=== PATIENT | female | born 1940 | race Caucasian/White ===

== ENCOUNTER 2017-06-23 10:06 | Outpatient (CLI) | payer MEDICARE ==
[2017-06-23] MEDS ORDERED: Iopamidol 370 76% 100 ML VIAL ONE (14:28)
== END 2017-06-23 10:07 | disposition home or self-care (01) ==
LOC: BICCT 10:06
PROVIDERS: ATTEND Internal Medicine Gastroenterology
DX: K52.839 Microscopic colitis, unspecified (principal); R10.31 Right lower quadrant pain; K57.30 Diverticulosis of large intestine without perforation or abscess without bleeding; K86.89 Other specified diseases of pancreas; M41.86 Other forms of scoliosis, lumbar region; M47.896 Other spondylosis, lumbar region
CPT/HCPCS: 74177

== ENCOUNTER 2017-07-02 10:05 | Outpatient (CLI) | payer MEDICARE ==
[2017-07-02] MEDS ORDERED: Gadobenate Dimeglumine 529 MG/1 ML (20ML VIAL) ONE (17:13)
== END 2017-07-02 10:06 | disposition home or self-care (01) ==
LOC: BICMRI 10:05
PROVIDERS: ATTEND Family Medicine
DX: R93.8 Abnormal findings on diagnostic imaging of other specified body structures (principal); K80.20 Calculus of gallbladder without cholecystitis without obstruction; K86.2 Cyst of pancreas
CPT/HCPCS: 36415; 74183; 80053; 83735; 84100; 85025; A9579

== ENCOUNTER 2018-03-26 12:52 | Outpatient (CLI) | payer MEDICARE ==
--- NOTE | 2018-03-26 15:23 | NM ---
HEPATOBILIARY SCAN: Date: 03/26/18 HISTORY: Gallstones. Right upper quadrant pain. RADIOPHARMACEUTICAL: 5.1 mCi technetium-99m mebrofenin injected intravenously. FINDINGS: There is good tracer extraction by the liver with prompt excretion into the biliary tract and small b owel loops, and normal filling of the gallbladder. IMPRESSION: No evidence of acute cholecystitis or high grade biliary tract obstruction. POS: [facility]
== END 2018-03-26 12:53 | disposition home or self-care (01) ==
LOC: NM 12:52
PROVIDERS: ATTEND Internal Medicine Gastroenterology
DX: M13.851 Other specified arthritis, right hip (principal); R10.31 Right lower quadrant pain; K80.21 Calculus of gallbladder without cholecystitis with obstruction
CPT/HCPCS: 78226; A9537

== ENCOUNTER 2018-06-04 12:38 | Outpatient (CLI) | payer MEDICARE ==
--- NOTE | 2018-06-04 15:54 | MRI ---
THORACIC SPINE MRI NONCONTRAST: 06/04/18 INDICATION: Scoliosis of the thoracolumbar region. Back pain. FINDINGS: There is no acute marrow edema. No compression fracture or subluxation. The thoracic spinal cord demo nstrates appropriate caliber contour and signal intensity. No significant central canal or neural for aminal stenosis at the thoracic spine. There is a trace degree of spondylolisthesis at T11-12 with as sociated mild disc osteophyte effacing ventral thecal sac. Minimal posterior disc bulge is seen at th e T9-10, T8-9 and T7-8 levels. At the T12-L1 level, there is a broad based disc osteophyte, asymmetri c to the right with moderate narrowing of the central canal. Partially imaged T2 hyperintensity of the right retroperitoneum may relate to extrarenal pelvis or ex ophytic cyst from the right kidney, difficult to reliably visualize on the bases of this exam. IMPRESSION: No acute abnormality of the thoracic spine. There is moderate central canal stenosis at the T12-L1 level due to disc osteophyte formation. POS: [facility]
--- NOTE | 2018-06-04 15:56 | MRI ---
MRI CERVICAL SPINE NONCONTRAST: Date: 06/04/18 HISTORY: 78-year-old female with cervical myelopathy, G95.9. COMPARISON: No prior MRI of cervical spine. FINDINGS: Vertebral body heights are maintained. Questionable mild bone marrow edema versus artifact at some le vels in the cervical spine and upper thoracic spine on the STIR sagittal sequence, favored to be alisha fact. Cervical spinal cord is normal in size and signal. Encephalomalacia and gliosis involving the i nferior aspect of right cerebellar hemisphere consistent with old infarctions of the right PICA toya tory. C1-2: No high grade central stenosis. C2-3: Disc space maintained. Central and right paracentral broad based disc-osteophytic bar complex, slightly indenting the central and right paracentral ventral aspect of the thecal sac, causing mild central spinal canal stenosis. Severe right facet DJD. Normal left facet joint. Mild bilateral neural foraminal stenosis, right greater than left. C3-4: Disc space maintained. Broad based disc-osteophytic bar complex encroaches upon the anterior a spect of the spinal canal, causing moderate central spinal canal stenosis. Severe right facet DJD. Mo derate to severe left facet DJD. Bilateral moderate to severe neural foraminal stenosis. C4-5: Ankylosis or right facet joint. Probable ankylosis of the contralateral left facet joint. Que stionable partial ankylosis across posterior aspect of the disc space. Moderate to severe disc space narrowing. T2 hyperintense signal within the disc space, nonspecific. No end plate edema. Broad disc- osteophytic bar complex encroaches upon the anterior aspect of the spinal canal causing moderate cent ral spinal canal stenosis. Moderate bilateral neural foraminal stenosis, right greater than left. Min imal anterolisthesis of C4 on C5. C5-6: Disc space maintained. Severe right-sided degenerative facet disease. Moderate to severe left- sided degenerative facet disease. These result in a Grade I anterolisthesis of C5 on C6. Diffuse mild disc bulge. Somewhat severe thickening of the ligamentum flavum. All of these factors result in arden re central spinal canal stenosis, with indentation of the ventral, and especially dorsal, aspects of the spinal cord, and complete effacement of CSF signal. Bony neural foraminal stenosis is moderate on the right and mild to moderate on the left, but there is effacement of fat signal in the right neura l foramen. Left-sided facet joint effusion. C6-7: Moderate disc space narrowing. Diffuse disc bulge-osteophytic bar complex encroaches upon the ventral aspect of the spinal canal, indenting the ventral aspect of the spinal cord. Moderate central spinal canal stenosis. Mild right neural foraminal stenosis. Moderate left neural foraminal stenosis . Moderate right degenerative facet changes. Mild to moderate left degenerative facet changes. C7-T1: Disc space maintained. Mild ligamentum flavum thickening. Mild disc bulge-osteophytic bar com plex. No significant central stenosis. No high grade neural foraminal stenosis. Bilateral moderate de generative facet changes. IMPRESSION: 1. Cervical spondylosis, with multilevel mild and moderate degenerative disc disease, and multilevel moderate and severe facet osteoarthrosis. 2. Chronic cord compression and severe central spinal canal stenosis at C5-6 due to a combination of Grade I spondylolisthesis, moderately severe ligamentum flavum thickening, and diffuse disc bulge. 3. Multilevel high grade bilateral neural foraminal stenosis. 4. 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 5. Ankylosis of facet joint(s) at C4-5. POS: [facility]
--- NOTE | 2018-06-04 16:16 | MRI ---
MRI LUMBAR SPINE WITHOUT CONTRAST: HISTORY: Lumbar radiculopathy. Low back pain x2 years. Right-sided pelvic pain x2-3 years. COMPARISON: None. TECHNIQUE: An MRI of the lumbar spine is performed without intravenous Gadolinium administration. Multisequenti al, multiplanar imaging is performed. FINDINGS: Coronal T2-weighted images demonstrate a mild leftward curvature of the distal thoracic spine. There is a significant rightward curvature of the lumbar spine with apex at the L2-L3 level. The visualized solid organs demonstrate appropriate signal intensity. There is a right extrarenal pe lvis. Symmetric signal intensity of the psoas muscles. Appropriate T1 signal intensity of the lumbar vertebrae. No evidence of fracture. No significant ST IR hyperintensity to suggest edema or ligamentous injury. The conus medullaris terminates at the anterior aspect of L1. T12-L1: There is a generalized disk bulge. There is mild ligamentum flavum thickening and facet hyp ertrophy, resulting in mild to moderate central canal stenosis. Moderate right and left neural dylon inal narrowing. L1-L2: Generalized disk bulge results in minimal central canal stenosis. Mild right and moderate le ft foraminal narrowing. L2-L3: There is severe loss of disk space height. Generalized disk bulge, ligamentum flavum thicken ing, and facet hypertrophy result in mild central canal stenosis. The right neural foramen and left neural foramen are patent. L3-L4: Generalized disk bulge, ligamentum flavum thickening, and facet hypertrophy result in moderat e central canal stenosis. The right neural foramen is patent. Severe left foraminal narrowing. L4-L5: There is 4.5 mm of anterolisthesis of L4 upon L5. Broad-based disk bulge, ligamentum flavum thickening, and facet hypertrophy result in moderate to severe central canal stenosis. The right sheree ral foramen is mildly narrowed. Mild to moderate left foraminal narrowing. L5-S1: Mild loss of disk space height. Generalized disk bulge, ligamentum flavum thickening, and fa cet hypertrophy result in mild central canal stenosis. There is some encroachment and deformity of b oth traversing S1 nerve roots, predominantly due to posterior element hypertrophy. There is a small amount of fluid in both facet joints. The right neural foramen is mildly to moderately narrowed. Th e left neural foramen is patent. IMPRESSION: 1. Scoliotic curvature of the lumbar spine. 2. Varying degrees of central canal stenosis and foraminal narrowing, as detailed above. POS: [facility]
== END 2018-06-04 12:39 | disposition home or self-care (01) ==
LOC: BICMRI 12:38
PROVIDERS: ATTEND Neurological Surgery
DX: M54.16 Radiculopathy, lumbar region (principal); M41.9 Scoliosis, unspecified; M48.061 Spinal stenosis, lumbar region without neurogenic claudication; M47.812 Spondylosis without myelopathy or radiculopathy, cervical region; M50.00 Cervical disc disorder with myelopathy, unspecified cervical region; M48.02 Spinal stenosis, cervical region; G95.20 Unspecified cord compression; M48.04 Spinal stenosis, thoracic region
CPT/HCPCS: 72141; 72146; 72148

== ENCOUNTER 2018-07-12 06:26 | Observation (INO) | payer MEDICARE ==
[2018-07-12] MEDS ORDERED: Sodium Chloride 0.9% 10 ML ONE (07:25)
[2018-07-12] MEDS ORDERED: Levofloxacin 500 mg/D5W 100 ml Premix Bag ONE (07:29)
[2018-07-12] MEDS ORDERED: Clindamycin/D5W 900 mg/50 ml Premix Bag ONE (07:29)
[2018-07-12 07:30] LABS: #Basophils 0.1 thou/uL (0.0-0.2); #Eosinphils 0.7 thou/uL (0.0-0.7); #Lymphocytes 2.5 thou/uL (1.20-3.40); #Monocytes 1.4 thou/uL (0.11-0.59); #Neutrophils 6.1 thou/uL (1.40-6.50); %Basophils 0.9 % (0.0-1.0); %Eosinophils 6.2 % (0.0-10.0); %Monocytes 13.2 % (0.0-10.0); %Neutrophils 56.7 % (42.0-75.0); Hemoglobin 14.3 g/dL (12.0-16.0); Mean Corpuscular HGB CONC 33.9 g/dL (32.0-36.0); Mean Corpuscular Hemoglobin 31.7 pg (27.0-31.0); Mean Corpuscular Volume 93.4 fL (78.0-98.0); Mean Platelet Volume 7.9 fL (7.4-10.4); Platelet Count 310 thou/uL (130-400); RBC Distribution Width 11.6 % (11.5-14.5); Red Blood Cell (RBC) Count 4.51 mill/uL (4.20-5.40); White Blood Cell (WBC) Count 10.8 thou/uL (4.8-10.8)
[2018-07-12] MEDS ORDERED: Famotidine/PF 20 mg/2ml Vial ONE (07:46)
[2018-07-12] MEDS ORDERED: Fentanyl 100 MCG/2 ML VIAL ONE (07:46)
[2018-07-12 07:48] LABS: Anion Gap 15 mmol/L (10-20); BUN (Urea Nitrogen) 19 mg/dL (9.8-20.1); Calc. Creatinine Clearance 0 mL/min (70-130); Calcium 9.9 mg/dL (7.8-10.44); Carbon Dioxide 23 mmol/L (23-31); Chloride 108 mmol/L (98-107); Estimated GFR-MDRD 57; Glucose 115 mg/dL (83-110); Potassium 4.1 mmol/L (3.5-5.1); Sodium 142 mmol/L (136-145)
[2018-07-12] MEDS ORDERED: Morphine Sulfate 2 MG/ML SYRINGE SLOW IVP PRN (09:22)
[2018-07-12] MEDS ORDERED: Promethazine HCl 25 MG/ML VIAL IM PRN ×2 (09:22→10:51)
[2018-07-12] MEDS ORDERED: Promethazine HCl 25 MG/ML VIAL SLOW IVP PRN (09:22)
--- NOTE | 2018-07-12 09:37 | OP ---
DATE OF PROCEDURE: 07/12/2018 CLIENT SERVER DEVELOPER: Zahra Llanos PA-C. PROCEDURES PERFORMED: Anterior cervical diskectomy, C5-C6; interbody arthrodesis; intervertebral biomechanical device; local morselized autograft; demineralized bone matrix; and anterior titanium instrumentation, C5-C6. DESCRIPTION OF PROCEDURE: The patient was brought to the operating room and intubated. She was positioned supine in modest extension on a gel filled donut. Incision was made exposing C5 and C6, and level was confirmed by x-ray. We removed the intervertebral disk at C5-C6 and completely decompressed the spinal cord at this level down to the level of the dura. The bony endplates were decorticated for the purpose of arthrodesis, and appropriate-sized intervertebral biomechanical device was brought into the field. It was filled with demineralized bone matrix and local morselized autograft and tapped in place securely at C5-C6. Next, an anterior plate was brought into the field and secured to C5 and C6 using two 14-mm screws at each level. The wound was then extensively irrigated, and maximum hemostasis was secured, and the wound was closed in anatomic layers. Job ID: [id number]
[2018-07-12] MEDS ORDERED: Promethazine 25 MG TAB PO PRN (10:51)
[2018-07-12] MEDS ORDERED: Milk Of Magnesia 30 ML UDCUP PO PRN (10:51)
[2018-07-12] MEDS ORDERED: Mag-Al 1200 mg/1200 mg/30 ML UDCUP PO PRN (10:51)
[2018-07-12] MEDS ORDERED: diphenhydrAMINE 25 MG CAP PO PRN (10:51)
[2018-07-12] MEDS ORDERED: diphenhydrAMINE 50 MG/ML VIAL IVP PRN (10:51)
[2018-07-12] MEDS ORDERED: HYDROcodone/Acetaminophen 10/325 mg Tablet PO PRN (10:51)
[2018-07-12] MEDS ORDERED: Promethazine HCl 12.5 MG SUPP PR PRN (10:51)
[2018-07-12] MEDS ORDERED: tiZANidine HCl 4 MG TAB PO PRN (10:51)
[2018-07-12] MEDS ORDERED: Ondansetron PF 4 MG/2 ML Vial IVP PRN (10:51)
[2018-07-12] MEDS ORDERED: Morphine 4 MG/ML VIAL SLOW IVP PRN ×2 (10:51→10:55)
[2018-07-12] MEDS ORDERED: traMADol HCl 50 MG TAB PO PRN ×2 (10:51)
[2018-07-12] MEDS ORDERED: Diphenoxylate HCl/Atropine Tablet PO PRN (10:58)
[2018-07-12 11:10] VITALS: BMI 26.6
[2018-07-12] MEDS: HYDROcodone/Acetaminophen 10/325 mg Tablet PO PRN ×2 (11:18→18:02)
[2018-07-12] MEDS: Sodium Chloride 0.9% 1,000 ML IV SCH (11:21)
[2018-07-12] MEDS ORDERED: Dexamethasone 20 MG/5 ML VIAL ONE (11:49)
[2018-07-12] MEDS ORDERED: PHENYLEPHRINE-NS 100 MCG/ML 10 ML SYRINGE ONE (11:49)
[2018-07-12] MEDS ORDERED: Lidocaine 1% PF 5 ML VIAL ONE (11:49)
[2018-07-12] MEDS ORDERED: Rocuronium Bromide 10 MG/ML (10ML VIAL) ONE (11:49)
[2018-07-12] MEDS ORDERED: PROPOFOL 200 MG/20 ML VIAL ONE (11:49)
[2018-07-12] MEDS ORDERED: Glycopyrrolate 0.2 MG/ML 5 ML SYRINGE ONE (11:49)
[2018-07-12] MEDS ORDERED: Ondansetron PF 4 MG/2 ML Vial ONE (11:49)
[2018-07-12] MEDS: Hydrocortisone 1% Cream 30 GM TUBE TOP SCH (20:21)
[2018-07-12] MEDS ORDERED: Amitriptyline HCl 10 MG TAB PO SCH (21:00)
[2018-07-13] MEDS: Sodium Chloride 0.9% 1,000 ML IV SCH (02:46)
[2018-07-13 04:37] VITALS: BP 116/55
[2018-07-13 07:54] VITALS: TEMP 98.2
[2018-07-13] MEDS: HYDROcodone/Acetaminophen 10/325 mg Tablet PO PRN (08:36)
[2018-07-13] MEDS: Hydrocortisone 1% Cream 30 GM TUBE TOP SCH (08:38)
[2018-07-13] MEDS ORDERED: Calcium Carbonate + Vit D 1 TAB PO SCH (09:00)
[2018-07-13] MEDS ORDERED: Lisinopril 20 MG TAB PO SCH (09:00)
[2018-07-13] MEDS ORDERED: Fish Oil 1,000 MG CAP PO SCH (09:00)
--- NOTE | 2018-07-13 09:46 | DIS ---
DATE OF ADMISSION: 07/12/2018 DATE OF DISCHARGE: The patient is an 78-year-old female status post C5-C6 ACDF. Following the surgery, she was transitioned to the [facility] where her pain was well controlled with p.o. medications, she was tolerating a regular diet, and she was voiding appropriately. Her only complaints are some mild voice hoarseness. She reports, she has significant improvement in her arm discomfort. She is awake, alert, comfortable, in no acute distress. Voice is hoarse. She is not having any respiratory difficulty. She has free active range of motion of all extremities. No focal motor weakness. We will plan to dismiss the patient to home. I have discussed home care and precautions. Will follow up in 2 weeks. She has been provided scripts for hydrocodone and muscle relaxant. Job ID: [id number]
== END 2018-07-13 10:37 | disposition home or self-care (01) ==
LOC: SDC 06:26 → INTOOBSV 06:30 → SURG A 06:30
PROVIDERS: ADMIT Neurological Surgery; ATTEND Neurological Surgery
PROC: 0RG10A0 Fusion of Cervical Vertebral Joint with Interbody Fusion Device, Anterior Approach, Anterior Column, Open Approach (ICD-10-PCS; principal; 2018-07-12)
DX: M48.02 Spinal stenosis, cervical region (principal); I10 Essential (primary) hypertension; K21.9 Gastro-esophageal reflux disease without esophagitis; Z88.0 Allergy status to penicillin; Z88.5 Allergy status to narcotic agent; Z79.899 Other long term (current) drug therapy
CPT/HCPCS: 20930; 20936; 22551; 22845; 22853; 76000; 80048; 85025; 93005; C1713; C1776; G0378; 93010; J0131; J1100; J1956; J2001; J2405; J2704; J3010; J3370; J3490; S0028

== ENCOUNTER 2018-07-27 11:00 | Outpatient (CLI) | payer MEDICARE ==
--- NOTE | 2018-07-27 13:01 | RAD ---
CERVICAL SPINE THREE VIEWS: HISTORY: Postop followup. Cervical myelopathy. COMPARISON: CT from 07/09/2018. FINDINGS: Postoperative changes are apparent since the prior CT scan. Anterior fusion procedure at C5-C6 is no khadar. Anterior plate and screws are noted. There is a disk implant present. There is anterolisthesi s at C5-C6, measured at approximately 3 mm, unchanged from the CT of 07/09/2018. Loss of disk space at C4-C5 and at C6-C7 is noted with degenerative spurring. Facet hypertrophy is prominent. IMPRESSION: Postoperative and degenerative changed noted, as described. POS: [facility]
== END 2018-07-27 11:01 | disposition home or self-care (01) ==
LOC: TBSIIMAG 11:00
PROVIDERS: ATTEND Neurological Surgery
DX: G95.9 Disease of spinal cord, unspecified (principal); M47.812 Spondylosis without myelopathy or radiculopathy, cervical region; Z98.1 Arthrodesis status
CPT/HCPCS: 72040

== ENCOUNTER 2018-09-09 13:03 | Outpatient (CLI) | payer MEDICARE ==
--- NOTE | 2018-09-09 13:27 | RAD ---
2 views of the cervical spine INDICATION: Postop COMPARISON: Prior exam dated 07/27/2018 FINDINGS: The mild anterolisthesis of C5 on C6 stable. ACDF plate at C5-6 is unchanged. The disc dege nerative disease at C4-5 and the multilevel facet osteoarthritic changes stable. Lateral masses are symmetric. Lung apices are clear. IMPRESSION: Stable postoperative cervical spine with severe multilevel cervical spondylosis.
== END 2018-09-09 13:04 | disposition home or self-care (01) ==
LOC: TBSIIMAG 13:03
PROVIDERS: ATTEND Neurological Surgery
DX: M48.02 Spinal stenosis, cervical region (principal); M47.12 Other spondylosis with myelopathy, cervical region; M50.020 Cervical disc disorder with myelopathy, mid-cervical region, unspecified level
CPT/HCPCS: 72040

== ENCOUNTER 2018-12-26 10:45 | Emergency (ER) | payer MEDICARE ==
--- NOTE | 2018-12-26 11:12 | RAD ---
EXAM: 3 views of the left shoulder HISTORY: Shoulder pain after fall in the shower COMPARISON: None FINDINGS: There is no evidence of acute fracture or dislocation. No degenerative changes are present. No soft tissue swelling is seen. The visualized thorax is unremarkable. Hardware is seen in the cervical spine. IMPRESSION: No evidence of acute osseous abnormality.
== END 2018-12-26 11:25 | disposition home or self-care (01) ==
LOC: SCSER 10:45
DX: S40.012A Contusion of left shoulder, initial encounter (principal); K21.9 Gastro-esophageal reflux disease without esophagitis; M81.0 Age-related osteoporosis without current pathological fracture; W01.0XXA Fall on same level from slipping, tripping and stumbling without subsequent striking against object, initial encounter

== ENCOUNTER 2019-04-05 10:44 | Outpatient (CLI) | payer MEDICARE ==
--- NOTE | 2019-04-05 14:08 | RAD ---
BARIUM SWALLOW ESOPHAGRAM: HISTORY: Dysphasia. Lower abdominal pain. COMPARISON: None. FINDINGS: MEDICAL CHEMIST CHEST RADIOGRAPH Heart: Normal cardiac silhouette. Aorta: Atherosclerosis. Costophrenic angles: Clear. Lungs: No masses or consolidation. Pneumothorax: None. OSSEOUS ABNORMALITIES: No acute abnormality. Previous right shoulder surgery and cervical fusion hard kay changes are noted. The patient was administered thick barium. There is evidence of penetration and aspiration. The cervi antolin and thoracic esophagus have an overall normal course and caliber. No mucosal abnormality. No intrinsic filling defect. IMPRESSION: Penetration and aspiration with thick barium. Further evaluation with a modified barium swallow in the presence of a speech pathologist is recommen ded. Transcribed Date/Time: 04/05/2019 2:15 PM
== END 2019-04-05 10:45 | disposition home or self-care (01) ==
LOC: RAD 10:44
PROVIDERS: ATTEND Internal Medicine Gastroenterology
DX: K21.9 Gastro-esophageal reflux disease without esophagitis (principal); R13.10 Dysphagia, unspecified; R10.32 Left lower quadrant pain; R10.31 Right lower quadrant pain; M54.9 Dorsalgia, unspecified; G89.29 Other chronic pain
CPT/HCPCS: 74220

== ENCOUNTER 2019-04-21 09:44 | Outpatient (CLI) | payer MEDICARE ==
--- NOTE | 2019-04-22 13:26 | RAD ---
MODIFIED BARIUM SWALLOW IN THE PRESENCE OF THE SPEECH PATHOLOGIST: HISTORY: Dysphagia following nontraumatic subarachnoid hemorrhage. Dysphagia unspecified. Feeding difficulty . EXPOSURE: 27.3 seconds of fluoroscopy time. 18.10 mGy. FINDINGS: In the presence of the speech pathologist the patient was administered puree, thin liquid, mechanical soft and regular textured consistencies as well as a barium tablet. There is premature spillage. No evidence of penetration or aspiration. IMPRESSION: Please refer to the speech pathology report for feeding recommendations. POS: [facility]
== END 2019-04-21 09:45 | disposition home or self-care (01) ==
PROVIDERS: ATTEND Internal Medicine Gastroenterology
DX: R13.10 Dysphagia, unspecified (principal); R63.3 Feeding difficulties
CPT/HCPCS: 74230